=== PATIENT | male | born 1960 | race Caucasian/White ===

== ENCOUNTER 2023-09-17 12:44 | Emergency (ER) | payer MEDICARE, MEDICAID, SELFPAY ==
--- NOTE | ~2023-09-17 | XR_ITS ---
EXAMINATION: XR wrist RT min 3V DATE: 09/17/2023 13:20 INDICATION: Right wrist pain and limited range of motion post fall TECHNIQUE: Posteroanterior, ulnar deviation, oblique, and lateral views of the right wrist were obtai ancelmo. COMPARISON: none FINDINGS: The linear lucencies projecting across the articular surface of the distal radius suspicious for nond isplaced intra-articular fracture. There is a small ossific density projecting over the joint space b etween the distal radius and ulna potentially representing a loose intra-articular fracture fragment. No other lesions suspicious for fracture identified. 1 mm ulnar positive variance with irregular cor tical contour along the distal ulna and suggestion of subarticular cystic change at the juxtaposed ra dial side of the proximal articular surface of the triquetrum suggesting possibility of chronic ulnoc arpal impaction. Mild osteoarthritis at the triscaphe joint. IMPRESSION: 1. Likely nondisplaced intra-articular impaction fracture along the distal articular surface of the r adius. 2. 1 mm ulnar positive variance with changes at the distal ulna and proximal triquetrum suggesting ch ronic ulnocarpal impaction. Reviewed, dictated and finalized at location B. IMPRESSION: 1. Likely nondisplaced intra-articular impaction fracture along the distal yue cular surface of the radius. 2. 1 mm ulnar positive variance with changes at the distal ulna and proximal tr iquetrum suggesting chronic ulnocarpal impaction.
--- NOTE | ~2023-09-17 | CT_ITS ---
EXAMINATION: CT brain wo con DATE: 09/17/2023 13:13 INDICATION: Head injury. TECHNIQUE: Computed tomography (CT) of the head was performed without intravenous contrast. The mA wa s adjusted according to patient size. Iterative reconstruction technique was employed. The dose-lengt h product was 681.00 mGy-cm. COMPARISON: None FINDINGS: There is no intracranial hemorrhage, acute infarction, or abnormal intracranial mass lesion . The ventricles are normal in size. There is mucosal thickening in the paranasal sinuses. The mastoi d air cells are normal. The orbits are normal. There is right frontal scalp soft tissue swelling. IMPRESSION: 1. Normal brain. Reviewed, dictated and finalized at location A. IMPRESSION: 1. Normal brain.
--- NOTE | ~2023-09-17 | CT_ITS ---
EXAMINATION: CT cervical spine wo con DATE: 09/17/2023 13:14 INDICATION: Fall with head injury TECHNIQUE: Computed tomography (CT) of the cervical spine was performed without intravenous contrast. Automated exposure control and iterative reconstruction technique were employed. The dose-length pro duct was 509.52 mGy-cm. COMPARISON: None FINDINGS: 1 mm anterolisthesis of C5 on C6. Alignment is otherwise normal. Vertebral body heights are normal. N o acute fracture. Moderate disc height loss with degenerative endplate changes and severe left-sided and moderate right-sided uncovertebral osteoarthritis at C5-C6 and C6-C7. Posterior disc ossified com plexes resulting in mild central canal stenosis at both these levels. Mild disc height loss with mild uncovertebral osteoarthritis at C3-C4 and C4-C5. Multilevel cervical facet osteoarthritis, severe on the right at C3-C4 through C5-C6 and on the left at C5-C6 and C7-T1. Mild to moderate facet osteoart hritis at the remaining cervical levels. Multilevel mild bilateral cervical neural foraminal stenosis . Cervical soft tissues are unremarkable. Mild emphysema and mild dependent atelectasis in the bilate ral upper lobes. IMPRESSION: 1. Moderate cervical spondylosis. No acute osseous abnormality. 2. Mild emphysema. Reviewed, dictated and finalized at location B.
[2023-09-17 12:51] VITALS: BP 196/101; PULSE 65; RESP 17; TEMP 36.6; O2SAT 97
[2023-09-17] MEDS: TETANUS,DIPHTHERIA,AC PERTUSSIS ADULT (0.5 ML) BOOSTRIX IM (13:20)
[2023-09-17] MEDS: HYDROcodone/acetaminophen (*CRX) 5-325 MG TABLET 1 TAB PO (13:24)
--- NOTE | 2023-09-17 15:54 | ED.FALL ---
HPI - Fall General Chief Complaint: Fall Stated Complaint: fall off semi Time Seen by Provider: 09/17/23 12:47 History of Present Illness HPI Narrative: patient presents here after he had tripped over on his boots and fell, he did hit his head, as well as his right wrist. No loss of consciousness. No nausea or vomiting. Related Data Allergies Allergy/AdvReac Type Severity Reaction Status Date / Time No Known Allergies Allergy Verified 09/17/23 12:56 Review of Systems Review of Systems: CONST: No fever. HEENT: Cut on face C/V: No chest pain RESP: No cough GI: No nausea vomiting : No dysuria. M/S: Right wrist pain SKIN: Cut on face NEURO: [No hfocal numbness or weakness] PSYCH: [No depression] Exam Narrative: EXAMINATION OF ORGAN SYSTEMS/BODY AREAS: Constitutional: Vital signs per nursing GENERAL:[No acute distress, non-toxic appearing.] HEAD: [place] l[place] to right forehead, lateral cheek EYES: EOMI, conjunctiva normal ENT: Hearing grossly intact LUNGS: Nonlabored breathing. HEART: [Regular rate and rhythm] ABD: [Soft], [nontender to palpation] EXT: Tenderness and slight deformity and swelling to right wrist, normal pulses, able to wiggle fingers SKIN: [place] to right forehead, lateral cheek NEURO: [Alert and oriented x 3. No gross focal sensory or strength deficits.] PSYCH: Normal affect Course Vital Signs Vital signs: Vital Signs Temperature 98 F 09/17/23 12:51 Pulse Rate 65 09/17/23 12:51 Respiratory Rate 17 09/17/23 12:51 Blood Pressure 196/101 H 09/17/23 12:51 Pulse Oximetry 97 09/17/23 12:51 Oxygen Delivery Room Air 09/17/23 12:51 Temperature 98 F 09/17/23 12:51 Pulse Rate 65 09/17/23 12:51 Respiratory Rate 17 09/17/23 12:51 Blood Pressure 196/101 H 09/17/23 12:51 Pulse Oximetry 97 09/17/23 12:51 Oxygen Delivery Room Air 09/17/23 12:51 Procedures Laceration Laceration 1: Date: 09/17/23 Site: face Side (If applicable): right Size (cm): 1 Description: stellate Depth: simple, single layer Pre-repair: irrigated ====== Skin Level ====== Skin layer closed with: dermabond ====== Subcutaneous Layer ====== ====== Muscle Layer ====== ====== Tendon Layer ====== Laceration 2: Date: 09/17/23 Site: face Side (If applicable): right Size (cm): 1 Description: linear Depth: simple, single layer ====== Skin Level ====== Skin layer closed with: dermabond ====== Subcutaneous Layer ====== ====== Muscle Layer ====== ====== Tendon Layer ====== Nerve Block Nerve Block 1: Additional Comments: Hematoma block performed R wrist for fracture / pain control / splint application. Informed verbal consent obtained. Skin cleaned with alcohol swabs. Palpated landmarks. 3cc lidocaine 1% instilled. Patient tolerated this well and did have adequate pain control Orthopedic Splinting/Casting Injury #1: Splinting/Casting Date: 09/17/23 Side: right Upper Extremity Injury Location: wrist Upper Extremity Immobilizer: wrist splint Splint: customized in ED OCL: volar Pre-Procedure Neuro Vascular Exam: normal Post-Procedure Neuro Vascular Exam: normal MDM - Fall MDM Narrative Medical decision making narrative: Patient presenting here after mechanical fall, he has injury to his right wrist with obvious deformity, which is neurovascularly intact, as well as head trauma with facial laceration. CT head, C-spine obtained without any obvious acute abnormality. Wounds cleaned, tetanus is updated, wrist x-ray does show nondisplaced intra-articular fracture. Hematoma block performed the patient tolerated this well, clinically, neurovascularly intact afterwards after evaluation at time of discharge patient in no distress, stable for outpatient management with Or
== END 2023-09-17 14:45 | disposition home or self-care (01) ==
PROVIDERS: Emergency Provider Emergency Medicine
DX: S01.81XA Laceration without foreign body of other part of head, initial encounter (principal); S52.91XA Unspecified fracture of right forearm, initial encounter for closed fracture; Z23 Encounter for immunization; W01.0XXA Fall on same level from slipping, tripping and stumbling without subsequent striking against object, initial encounter
CPT/HCPCS: 29125; 70450; 72125; 73110; 90471; 90715; 99284; A9270

== ENCOUNTER 2024-04-06 08:01 | Observation (INO) | payer MEDICARE, MEDICAID, SELFPAY ==
[2024-04-06] VITALS (15 sets, daily range): BP systolic 126–180; BP diastolic 59–103; PULSE 49–88; RESP 8–20; TEMP 36.3–36.6; O2SAT 92–98; BMI 29.2
--- NOTE | ~2024-04-06 | XR_ITS ---
Clinical Indication: Cough PA and lateral views of the chest: Comparison: None Findings: The lungs are clear, without evidence of focal consolidation or pleural effusion. Cardiome diastinal silhouette is within normal limits. Bones and soft tissues are unremarkable. Impression: Clear lungs. Reviewed, dictated and finalized at location . Impression: Clear lungs.
--- NOTE | ~2024-04-06 | XR_ITS ---
Portable chest x-ray Comparison: 04/06/2024 Clinical History: Hemoptysis Findings: Minimal bibasilar haziness again present. No pleural effusion or pneumothorax. Cardiomedi astinal silhouette is stable. Bones and soft tissues are unremarkable. Impression: Stable minimal bibasilar haziness, nonspecific. Reviewed, dictated and finalized at location . Impression: Stable minimal bibasilar haziness, nonspecific.
--- NOTE | ~2024-04-06 | CT_ITS ---
CTA chest PE protocol Ordering provider: Cresencio Roca MD History: 63 years Male with . Hemoptysis . Comparison: None. Technique: CT angiogram chest was performed following timed intravenous injection of contrast. Thin s lice axial images and reformatted coronal images were obtained. Three dimensional reformatted images of the chest were also obtained using a [employer] workstation. . Automated exposure control and iterati ve reconstruction technique were employed. The dose-length product was 565.28 mGy-cm. Findings: PULMONARY ARTERIES: No pulmonary embolus. VISUALIZED THORACIC INLET: Normal. MEDIASTINUM: Aorta/coronary arteries: Mild atheromatous disease. Heart/other: The heart is not enlarged. Lymph nodes: No mediastinal or hilar adenopathy. LUNGS: Small Patchy groundglass appearing areas in the left lung bases which may indicate atelectasis versus pneumonia versus hemorrhage. Clinical correlation advised. Otherwise, No pulmonary nodules or masses . No effusions. No pneumothorax. VISUALIZED UPPER ABDOMEN: Narrowing at the origin of these superior mesenteric artery. Clinical corre lation advised. No 2.5 cm Left kidney cyst.. Otherwise, the visualized upper abdomen is normal. MUSCULOSKELETAL: Soft tissues: The superficial soft tissues are normal. Bones: Age appropriate degenerative changes of the spine. IMPRESSION: 1. Small patchy groundglass appearing areas in the left lung base suggestive of atelectasis versus p neumonia versus hemorrhage. Clinical correlation advised. 2. Slight narrowing at the origin of the superior mesenteric artery. Clinical correlation advised. Reviewed, dictated and finalized at location A. IMPRESSION: 1. Small patchy groundglass appearing areas in the left lung base suggestive o f atelectasis versus pneumonia versus hemorrhage. Clinical correlation advised. 2. Slight narrowing at the origin of the superior mesenteric artery. Clinical correlation advised.
--- NOTE | 2024-04-06 08:25 | ECG_ITS ---
Test Date: 2024-04-06 11:30:14 Measurements Intervals [place] Rate: 57 P: 46 AL: 162 QRS: 3 QRSD: 144 T: 19 QT: 432 QTc: 423 Interpretive Statements SINUS BRADYCARDIA RIGHT BUNDLE BRANCH BLOCK [120+ ms QRS DURATION, UPRIGHT V1, 40+ ms S IN I/aVL/V4/V5/V6] No previous ECG available for comparison Electronically Signed On 04-06-2024 13:20:34 CDT by Praful Helm M.D.
[2024-04-06 08:45] LABS: Basophils Absolute Auto 0.1 K/mm3 (0.0-0.1); Basophils Percent Auto 1.3 % (0.2-1.2); Eosinophils Absolute Auto 0.2 K/mm3 (0-0.3); Eosinophils Percent Auto 2.3 % (0-4.4); Hematocrit 50.9 % (42.0-52.0); Hemoglobin 17.1 g/dL (14.0-18.0); Immature Granulocyte Absolute 0.02 K/mm3 (0.00-0.031); Immature Granulocyte Percent A 0.3 % (0-0.5); Lymphocytes Absolute Auto 2.17 K/mm3 (0.9-3.2); Lymphocytes Percent Auto 27.7 % (18.3-44.2); Mean Corpuscular HGB Conc 33.6 g/dl (32-36); Mean Corpuscular Hemoglobin 30.9 pg (26-34); Monocytes Absolute Auto 0.7 K/mm3 (0.1-0.6); Monocytes Percent Auto 9.1 % (2.6-8.5); Neutrophils Absolute Auto 4.6 K/mm3 (1.3-6.7); Neutrophils Percent Auto 59.3 % (45.5-73.1); Platelet Count Result 224 k/mm3 (150-375); Red Blood Count 5.53 M/mm3 (4.6-6.20); Red Cell Distribution Width 13.1 % (11.5-14.5); White Blood Count 7.8 K/mm3 (4.5-10.0)
[2024-04-06 08:54] LABS: Alanine Aminotransferase 38 U/L (6-50); Albumin Level 4.6 g/dL (3.5-5.1); Alkaline Phosphatase 67 U/L (38-126); Anion Gap 9 mmol/L (4-12); Aspartate Amino Transferase 38 U/L (17-59); Bilirubin,Total 1.3 mg/dL (0.2-1.3); Blood Urea Nitrogen 15 mg/dL (9-20); Calcium 9.1 mg/dL (8.4-10.2); Carbon Dioxide 28 mmol/L (22-30); Chloride 100 mmol/L (98-107); Estimated CRCL calculation 72 ml/min; Estimated Glomerular Filt Rate > 60; Glucose 109 mg/dL (65-110); Potassium 4.3 mmol/L (3.4-5.0); Sodium 137 mmol/L (137-145)
[2024-04-06 09:02] LABS: INR 1.1; Prothrombin Time 14.6 Seconds (11.1-14.7)
[2024-04-06 09:03] LABS: Partial Thromboplastin Time 33.4 Seconds (22.3-36.8)
[2024-04-06 10:43] LABS: Influenza A QL RT-PCR Negative (Negative); Influenza B QL RT-PCR Negative (Negative); RSV RNA, RT-PCR Negative (Negative); SARS-CoV-2 RNA PCR Negative (Negative)
--- NOTE | 2024-04-06 11:47 | ED.GENADULT ---
HPI - General Adult General Chief complaint: Shortness of Breath/Dyspnea Stated complaint: coughing up blood Time Seen by Provider: 04/06/24 08:17 History of Present Illness HPI narrative: This is a 63-year-old male presenting ED with chief complaint of hemoptysis. Symptoms started 2 days ago. Patient has a productive cough she feels coming from deep in his chest. He is denying fevers chills chest pain difficulty breathing abdominal pain, lower extremity edema, risk factors for DVT/PE or URI symptoms. No use of blood thinners. Patient used to be a smoker but now uses a vape pen. Related Data Allergies Allergy/AdvReac Type Severity Reaction Status Date / Time No Known Allergies Allergy Verified 04/06/24 08:06 [facility] Past Medical History Medical History Fracture of radius, distal, right, closed Right knee DJD Smoking Surgical History Surgical History History of tonsillectomy Family History Family History Unknown Hypertension Heart disease Diabetes mellitus Social History Social History Social History: caffeine use Smoking status: Current every day smoker Tobacco type: e-cigarettes/vaping Additional smoking assessment comments: quit cigarettes Alcohol intake: current Substance use type: marijuana Occupation/Education: occupation Additional occupation/education comments: self employed Gender identity (if verbalized by the patient): Male Exam Narrative: APPEARANCE: No apparent distress. Head: atraumatic. EYES: EOMI, NOSE: Atraumatic NECK: Trachea midline RESPIRATORY: No increased rate of breathing, wheezing and rhonchi in the left lower lobe. Otherwise clear CARDIOVASCULAR: RRR, no peripheral edema ABDOMINAL: Non-distended soft nontender MUSCULOSKELETAl: No obvious deformities NEURO: Alert. Moving 4/4 extremities SKIN:: Warm, dry. Normal color PSYCHIATRIC: Normal affect Course Vital Signs Vital signs: Vital Signs Temperature 97.7 F 04/06/24 08:07 Pulse Rate 70 04/06/24 08:07 Respiratory Rate 15 04/06/24 08:07 Blood Pressure 180/95 H 04/06/24 08:07 Pulse Oximetry 97 04/06/24 08:07 Temperature 97.9 F 04/06/24 11:26 Pulse Rate 60 04/06/24 11:26 Respiratory Rate 12 04/06/24 11:26 Blood Pressure 175/92 H 04/06/24 11:26 Pulse Oximetry 96 04/06/24 11:26 Oxygen Delivery Room Air 04/06/24 08:50 Medical Decision Making MDM Narrative Medical decision making narrative: -Course: 63-year-old male presenting with hemoptysis. CT PE negative for pulmonary embolism. It shows VERY subtle haziness/groundglass opacities left lower lobe which could be atelectasis vs pneumonia vs hemorrhage. This area corresponds with the patient's scattered wheezing and rhonchorous lung sounds. Case was discussed with Dr. Manning (pul). Alveolar hemorrhage due to vape pen usage, pneumonia, bronchitis are all in the differential. Patient placed on antibiotics to cover for pneumonia. Patient will be placed in observation for further management. -DDX includes but is not limited to: PE, alveolar hemorrhage, pneumonia, bronchitis, epistaxis, GI bleed -Co-morbidities complicating care: Arthritis -Social determinants of health: Former smoker, currently using a vape pen, occasional marijuana use -Independent interpretation of studies: Labs reviewed Imaging reviewed Independent EKG interpretation: Rhythm [sinus], Rate [57], [place] -[normal], [place] -[normal], QRS wide], QTC [normal], T waves -[negative for concerning inversions], ST Segments - [Negative for concerning elevations] Final interpretations: Sinus bradycardia with right bundle-branch block -Discussion of Management/Consultants: Kerri GauthierPulm)Monique -Interventions: Ceftriaxone, azithromycin -Shared decision making / Disposition: Observation Vital
[2024-04-06] MEDS: AZITHROMYCIN 500 MG/NS 250 ML 500 MG/250 ML BAG 250 MG IVPB (13:06)
--- NOTE | 2024-04-06 13:14 | PM.IMHP ---
H&P: HPI History of Present Illness Date/Time: 04/06/24 13:14 Chief Complaint: Hemoptysis Narrative: 63 y/o M presents with hemoptysis with PMH of smoking/vape use, GERD, and DJD. The patient here for further evaluation of coughing up blood. HPI obtained through patient interview and chart review. He reports onset 2 days ago on 04/03 while he was setting up to [employer] for the evening. Reports he coughed when he got outside and it was light red with mucus. Reports that has increased in severity and volume since onset. Reports the blood is darker and now has clots. He describes the cough as productive, producing white sputum, and scant initially then moderate in volume today. He is not currently on anticoagulation. He denies recent surgery, malignancy/treatment for malignancy, travel, or immobility in the last 3 months. Patient has history of smokin PPD x 5-6 years. Currently uses a vape pen every 20 mins during waking hours x 4 years. Readiness for cessation - interested, has previously tried the nicotine patches without success. ETOH use is daily, 2 on average per day, and beer. Initial VS at presentation: 97.7? F, HR 70, RR 15, 180/95, and 97% on RA. ED workup showed: No leukocytosis, no anemia, normal coags, no significant electrolyte derangements, creatinine 0.9 and GFR >60, and viral PCR negative. A CXR showed clear lungs. CTA of the chest showed small patchy ground-glass appearing areas of left lung base subjective of atelectasis v pneumonia v hemorrhage and slight narrowing at the origin of the superior mesenteric artery. Review of Systems Review of Systems: All systems reviewed & are unremarkable except as noted in HPI and below PMFSH Past Medical History Medical History Arthritis Bronchitis Fracture of radius, distal, right, closed GERD (gastroesophageal reflux disease) History of nicotine vaping Right knee DJD Smoking Surgical History Surgical History History of tonsillectomy Family History Family History Unknown Hypertension Heart disease Diabetes mellitus Social History Social History Social History: caffeine use Smoking status: Heavy tobacco smoker Tobacco type: e-cigarettes/vaping Additional smoking assessment comments: quit cigarettes Alcohol intake: current Substance use: current Substance use type: marijuana Do You Feel Safe in your Home?: Yes Lack of Transportation: No Lack of Food: Never True Current Housing: I Have Housing Concerned About Future Housing: No Difficulty Paying Gas/Electric Bills: No Difficulty Paying for Meds: No Currently Unemployed: No Education: Decline to Answer Difficulty w/ Childcare or Family Care: No Occupation/Education: occupation Additional occupation/education comments: self employed Gender identity (if verbalized by the patient): Male Spiritual care concerns: No Meds Home Medications and Allergies Home Medications Medication Instructions Recorded Confirmed Type diclofenac sodium 75 mg 75 mg PO DAILY 04/06/24 04/06/24 History tablet,delayed release oxycodone-acetaminophen 5 mg-325 1 tablet PO TID PRN Pain (Scale 04/06/24 04/06/24 History mg tablet Score 4-6) Allergies Allergy/AdvReac Type Severity Reaction Status Date / Time No Known Allergies Allergy Verified 04/06/24 08:06 Vital Signs Vital Signs - 24 hr 04/06/24 08:07 04/06/24 08:50 04/06/24 08:10 Temperature 97.7 F Pulse Rate 70 62 Respiratory Rate 15 15 Blood Pressure 180/95 H 180/95 H Pulse Oximetry 97 97 Oxygen Delivery Room Air 04/06/24 09:04 04/06/24 10:08 04/06/24 11:26 Temperature 97.9 F 97.9 F 97.9 F Pulse Rate 54 L 62 60 Respiratory Rate 12 16 12 Blood Pressure 168/90 H 142/88 H 175/92 H Pulse Oximetry 98 92 96 [employer]
--- NOTE | 2024-04-06 14:53 | PM.CNPUL ---
Assessment and Plan Assessment and plan (1) Hemoptysis: Code(s): R04.2 - Hemoptysis Status: Acute Assessment and Plan: This 63-year-old man with a long history of smoking and a 2-year history of vaping presented with a 3-day history of hemoptysis, characterized by bright red blood on several occasions each day, which did not follow symptoms suggestive of lower respiratory tract infection such as bronchitis or pneumonia. A chest CT was essentially non-localizing, showing a few ground-glass opacities in the left lower lobe. He had no pulmonary embolism and only mild centrilobular emphysema. The patient's history, in conjunction with the diagnostic studies, likely suggests vaping-induced lung injury with hemoptysis. Other possibilities that need to be excluded, such as pulmonary-renal syndrome, seem to be less likely. Plan: The patient was given Solu-Medrol 80 mg IV and started on antibiotics while waiting for sputum culture. Tests to exclude hepatorenal syndrome will be ordered. (2) History of nicotine vaping: Code(s): Z87.891 - Personal history of nicotine dependence Status: Acute History of Present Illness History of Present Illness Consult date: 04/06/24 Chief complaint: Hemoptysis Narrative: This 63-year-old man presented with a 3-day history of hemoptysis. The patient was in his usual state of health until approximately 2 days prior to this admission when, while doing some work at home, he coughed up blood. Prior to the first episode of hemoptysis, he had no symptoms suggestive of bronchitis, such as cough with sputum production, or other symptoms such as shortness of breath or chest pain. The patient continued to have hemoptysis, coughing up bright red blood yesterday morning. Yesterday afternoon, he was coughing up dark blood, having approximately 3-5 episodes of hemoptysis on each of these days. The patient was evaluated in the emergency room earlier today. He again had hemoptysis with bright red blood a couple of times in the emergency room. Workup with chest CT showed no evidence of pulmonary embolism. There was evidence of mild centrilobular emphysema and faint ground-glass opacities in the left lower lobe. The patient had been a smoker for many years. Over the last 2 years, he has been vaping excessively. It is unclear whether he is using nicotine plus THC. His past medical history is essentially negative for previous lung disease. He has right knee pain likely related to osteoarthritis. Review of Systems Review of Systems: All systems reviewed & are unremarkable except as noted in HPI and below (HPI and below) [facility] Past Medical History Medical History Fracture of radius, distal, right, closed Right knee DJD Smoking Surgical History Surgical History History of tonsillectomy Family History Family History Unknown Hypertension Heart disease Diabetes mellitus Social History Social History Social History: caffeine use Smoking status: Current every day smoker Tobacco type: e-cigarettes/vaping Additional smoking assessment comments: quit cigarettes Alcohol intake: current Substance use type: marijuana Occupation/Education: occupation Additional occupation/education comments: self employed Gender identity (if verbalized by the patient): Male Meds Home Medications and Allergies Home Medications Medication Instructions Recorded Confirmed Type meloxicam 15 mg tablet 15 mg PO DAILY #30 tabs 10/27/23 02/05/24 Rx Allergies Allergy/AdvReac Type Severity Reaction Status Date / Time No Known Allergies Allergy Verified 04/06/24 08:06 Vital Signs Vital Signs - 24 hr 04/06/24 08:07 04/06/24 08:50 04/06/24 08:10 Temperature 36.5 C Pulse Rate 70 62 Respiratory Rate 15 15 Blood Pressure 180/95 H 180/95 H Puls
--- NOTE | 2024-04-06 15:21 | ADMGEN ---
This patient, Ricardo Patel, was admitted to Medical Room 346-01. Patient/family oriented to hospital policies and general routines including ID bracelet, bed and alarms, visiting hours, pain management, procedures, bathroom and other care routines, personal items, smoking policy, room service/diet, and visiting hours. Information on how to activate the Rapid Response Team has been discussed. Patient/Family are encouraged to report perceived risks to care and to ask questions if they do not understand what they are told or what they should do.
[2024-04-06] MEDS: NICOTINE (*PBKC) 21 MG PATCH 1 PATCH TRANSDERM (16:20)
[2024-04-06] MEDS: methylPREDNISolone SOD SUCC 40 MG VIAL 80 MG IV PUSH (16:21)
[2024-04-06 18:47] LABS: Add Urine Microscopic? YES; Appearance Urine Clear (Clear); Bacteria Urine None Seen /hpf; Bilirubin Urine Negative (Negative); Blood Urine Negative (Negative); Color Urine Yellow (Yellow); Glucose Urine UA Negative (Negative); Ketones Urine 1+ mg/dL (Negative); Leukocyte Esterase Ur Trace LEU/UL (Negative); Nitrate Urine Negative (Negative); Non Pathogenic Casts 0-2; Protein Urine Negative (Negative); RBC Urine 0-2 /hpf (0-2); Specific Grav Ur 1.039 (1.001-1.035); Squamous Epithelial Cell Urine None Seen /hpf (Few); WBC Urine 0-5 /hpf (0-3); pH Urine 5.5 (5.0-9.0)
[2024-04-06 19:28] LABS: MRSA (PCR) NOT DETECTED (NOT DETECTE)
[2024-04-06] MEDS: guaiFENesin 12 HR 600 MG TABCR PO (20:24)
[2024-04-07 04:00] VITALS: PULSE 70
[2024-04-07 04:27] VITALS: BP 147/97; PULSE 76; RESP 16; TEMP 36.6; O2SAT 97
[2024-04-07 06:30] LABS: Basophils Percent Auto 0.1 % (0.2-1.2); Eosinophils Percent Auto 0.1 % (0-4.4); Hemoglobin 16.6 g/dL (14.0-18.0); Immature Granulocyte Absolute 0.05 K/mm3 (0.00-0.031); Immature Granulocyte Percent A 0.5 % (0-0.5); Lymphocytes Absolute Auto 1.42 K/mm3 (0.9-3.2); Lymphocytes Percent Auto 13.4 % (18.3-44.2); Mean Corpuscular HGB Conc 33.2 g/dl (32-36); Mean Corpuscular Hemoglobin 30.5 pg (26-34); Mean Corpuscular Volume 91.7 fl (80-100); Mean Platelet Volume 10.4 fl (7.4-10.4); Monocytes Absolute Auto 0.9 K/mm3 (0.1-0.6); Monocytes Percent Auto 8.5 % (2.6-8.5); Neutrophils Absolute Auto 8.2 K/mm3 (1.3-6.7); Neutrophils Percent Auto 77.4 % (45.5-73.1); Platelet Count Result 246 k/mm3 (150-375); Red Blood Count 5.45 M/mm3 (4.6-6.20); Red Cell Distribution Width 12.8 % (11.5-14.5); White Blood Count 10.6 K/mm3 (4.5-10.0)
[2024-04-07 06:42] LABS: Alanine Aminotransferase 32 U/L (6-50); Albumin Level 4.5 g/dL (3.5-5.1); Alkaline Phosphatase 53 U/L (38-126); Anion Gap 11 mmol/L (4-12); Aspartate Amino Transferase 26 U/L (17-59); Bilirubin,Total 1.5 mg/dL (0.2-1.3); Blood Urea Nitrogen 17 mg/dL (9-20); Carbon Dioxide 23 mmol/L (22-30); Chloride 102 mmol/L (98-107); Estimated CRCL calculation 91 ml/min; Estimated Glomerular Filt Rate > 60; Glucose 148 mg/dL (65-110); Potassium 3.9 mmol/L (3.4-5.0); Sodium 136 mmol/L (137-145)
--- NOTE | 2024-04-07 08:32 | PM.IMPN ---
Progress Note: A&P Assessment and Plan (1) Hemoptysis: Code(s): R04.2 - Hemoptysis Status: Acute Assessment and Plan: - did not meet SIRS criteria, however blood cultures were obtained. Follow. - CXR: clear lungs - chest CTA: 1. Small patchy groundglass appearing areas in the left lung base suggestive of atelectasis versus pneumonia versus hemorrhage. Clinical correlation advised. 2. Slight narrowing at the origin of the superior mesenteric artery. Clinical correlation advised. - hgb 17.1 - started on CPAP treatment: Ceftriaxone and azithromycin on 04/06. - supportive care: Tylenol p.r.n., antitussives p.r.n., DuoNeb p.r.n., Mucinex scheduled - DDx: pulmonary hemorrhage secondary to vape use versus pneumonia, or combination thereof. - pulmonology consulted, with recommendations for Solu-Medrol 80 mg IV, started on azithromycin and ceftriaxone antibiotics while waiting for sputum culture and hepatorenal syndrome testing Influenza a, B, RSV, and COVID test negative (2) Smoking: Code(s): F17.200 - Nicotine dependence, unspecified, uncomplicated Status: Acute Assessment and Plan: - history of cigarette smokin PPD x 5-6 years. - current vape use, estimates he uses it every 20 minutes during waking hours for the past 4 years - readiness for cessation: Interested, previous lesion tried nicotine patches without success - nicotine patch ordered -started bupropion (3) Elevated blood pressure reading without diagnosis of hypertension: Code(s): R03.0 - Elevated blood-pressure reading, without diagnosis of hypertension Status: Acute Assessment and Plan: - elevated, no previous diagnosis of hypertension. 150/80 on average at home per patient report. - current range: 180/95 to 142/80 - hydralazine p.r.n. for BP greater than 180/90 - monitor Plan Patient requesting a referral to a primary care provider at d/c, not currently established with one. Diet: Regular GI Prophylaxis: Not currently indicated DVT Prophylaxis: SCDs Lines: Peripheral Code Status: full code Time Spent With Patient Time: 40 minutes Subjective Date/time seen: 04/07/24 08:32 Interval history: 63-year-old male with history of hypertension, heart disease and diabetes presents to the hospital for hemoptysis. Per pulmonology patient's history and diagnostic studies likely suggests vaping-induced lung injury with hemoptysis. No acute events, patient is thinking about leaving AMA so he can smoke, patient advised to stay and started bupropion Review of Systems Review of Systems: All systems reviewed & are unremarkable except as noted in HPI and below Exam Const: General: comfortable and no acute distress Other: , male, nontoxic appearance HENMT: Face/Nose/Sinus: Normal nares present Mouth: Yes moist mucous membranes Eyes: General: appearance normal, both eyes and all related structures Sclera: sclerae normal Pupils: Equal, round and reactive pupils present EOM: EOMs intact bilaterally Resp: Effort & Inspection: normal respiratory effort Auscultation: clear to auscultation bilaterally Cardio: Rate: regular rate Rhythm: regular rhythm Other: S1-S2 present without murmur, rub, ectopy Skin: General skin exam: normal color and no rashes or lesions noted Wounds: no wounds Neuro: General: gait normal Cranial nerves: Yes Equal, round and reactive pupils present Speech: normal speech Motor exam (neuro): 5/5 motor strength present throughout Sensory Exam: normal sensation Other: A&O x4 Extrem: General: normal to inspection Psych: Mental Status: mental status grossly normal Affect: normal affect Other: Good insight and judgment, pleasant Objective Data Vital Signs Vital Signs: Vital Signs - 24 hr 04/06/24 08:50 04/06/24 09:04 04/06/24 10:08 Temperature 97.9 F 97.9 F Pulse Rate 54 L 62 Respiratory Rate 12 16 Blood
--- NOTE | 2024-04-07 08:51 | PM.PNPUL ---
Progress Note: A&P Assessment and Plan (1) History of nicotine vaping: Code(s): Z87.891 - Personal history of nicotine dependence Status: Acute (2) Hemoptysis: Code(s): R04.2 - Hemoptysis Status: Acute Assessment and Plan: This 63-year-old man presented with hemoptysis of 3 days duration. Hemoptysis did not follow prior symptoms suggestive of bronchitis or pneumonia. Chest CT was essentially nonlocalizing, showing minimal ground-glass opacities in the left lower lobe. He also had evidence of mild centrilobular emphysema. The patient's history in conjunction with diagnostic studies suggests the most likely cause of lung damage is related to vaping. Workup for vasculitis is pending. Urinalysis is unremarkable. Renal function is normal. Plan: The patient will have a stat chest x-ray this morning. It is okay to discharge the patient home on prednisone 40 mg p.o. daily for 5-7 days. The patient is also to complete an azithromycin course for a total of 5 days. The patient was advised to call Pulmonary Services or come to the emergency room if he starts coughing up more blood. The patient will make an appointment to see us in the Pulmonary Clinic approximately 2 weeks from discharge. I will sign off, please call with any questions. Subjective Date/time seen: 04/07/24 08:51 Interval history: Patient had 1 episode of hemoptysis this a.m., which was mostly old blood. No new respiratory symptoms no fever no chills no chest pain. Remains on room air. Review of Systems Review of Systems: All systems reviewed & are unremarkable except as noted in HPI and below (HPI and below) Exam Narrative: GENERAL APPEARANCE: Well developed, well nourished, alert and cooperative, and appears to be in no acute distress SKIN: Inspection of the skin reveals no rashes, ulcerations or petechiae. HEENT: Sclerae anicteric and conjunctivae pink and moist. Extraocular movements were intact and pupils were equal, round, and reactive to light. The oral mucosa, hard and soft palate, tongue and posterior pharynx were normal. NECK: Supple. There was no thyroid enlargement, and no tenderness, or masses were felt. CHEST: Normal AP diameter and normal contour without any kyphoscoliosis. LUNGS: Auscultation of the lungs revealed normal breath sounds without any other adventitious sounds or rubs. CARDIAC: There was a regular rate and rhythm without any murmurs, gallops, rubs. ABDOMEN: Soft and nontender with normal bowel sounds. There was no organomegaly. LYMPH NODES: No lymphadenopathy was appreciated in the neck. EXTREMITIES: No cyanosis, clubbing or edema. NEUROLOGIC: Alert and oriented x 3. Normal affect. Objective Data Vital Signs Vital Signs: Vital Signs - 24 hr 04/06/24 09:04 04/06/24 10:08 04/06/24 11:26 Temperature 36.6 C 36.6 C 36.6 C Pulse Rate 54 L 62 60 Respiratory Rate 12 16 12 Blood Pressure 168/90 H 142/88 H 175/92 H Pulse Oximetry 98 92 96 Oxygen Delivery Fraction of Inspired Oxygen 04/06/24 10:54 04/06/24 10:56 04/06/24 11:00 Temperature Pulse Rate 56 L 63 65 Respiratory Rate 12 8 L 15 Blood Pressure 179/103 H Pulse Oximetry 96 96 96 Oxygen Delivery Fraction of Inspired Oxygen 04/06/24 11:02 04/06/24 11:26 04/06/24 12:15 Temperature Pulse Rate 58 L 57 L 49 L Respiratory Rate 15 12 16 Blood Pressure 179/101 H Pulse Oximetry 96 97 97 Oxygen Delivery Fraction of Inspired Oxygen 04/06/24 12:43 04/06/24 16:59 04/06/24 16:00 Temperature Pulse Rate 88 Respiratory Rate 20 Blood Pressure Pulse Oximetry 97 Oxygen Delivery Room Air Room Air Fraction of Inspired Oxygen 21 04/06/24 20:26 04/06/24 20:00 04/06/24 20:00 Temperature 36.3 C L Pulse Rate 66 80 Respiratory Rate 16 Blood Pressure 126/59 L Pulse Oximetry 97 Oxygen Delivery Room Air Fraction of Inspired Oxygen 04/06/24 23:35 04/07/24 04:00 04/07/24 04:27 Temperature
[2024-04-07] MEDS: AZITHROMYCIN 500 MG/NS 250 ML 500 MG/250 ML BAG 250 MG IVPB (09:00)
[2024-04-07] MEDS: guaiFENesin 12 HR 600 MG TABCR PO (09:01)
[2024-04-07] MEDS: NICOTINE (*PBKC) 21 MG PATCH 1 PATCH TRANSDERM (09:01)
[2024-04-07] MEDS: buPROPion HCL XL (24 HR) 150 MG TABCR PO (10:45)
[2024-04-07 13:50] VITALS: BP 153/77; PULSE 81; RESP 18; TEMP 36.7; O2SAT 99
--- NOTE | 2024-04-07 13:55 | PM.DS ---
DS: Admitting Diagnosis Discharge Date 04/07/2024 Admitting Diagnosis Acute lung injury and pneumonia DS: Discharge Diagnosis Discharge Diagnosis (1) Hemoptysis: Code(s): R04.2 - Hemoptysis Status: Acute Assessment and Plan: - did not meet SIRS criteria, however blood cultures were obtained. Follow. - CXR: clear lungs - chest CTA: 1. Small patchy groundglass appearing areas in the left lung base suggestive of atelectasis versus pneumonia versus hemorrhage. Clinical correlation advised. 2. Slight narrowing at the origin of the superior mesenteric artery. Clinical correlation advised. - hgb 17.1 - started on CPAP treatment: Ceftriaxone and azithromycin on 04/06. - supportive care: Tylenol p.r.n., antitussives p.r.n., DuoNeb p.r.n., Mucinex scheduled - DDx: pulmonary hemorrhage secondary to vape use versus pneumonia, or combination thereof. - pulmonology consulted, with recommendations for Solu-Medrol 80 mg IV, started on azithromycin and ceftriaxone antibiotics while waiting for sputum culture and hepatorenal syndrome testing Influenza a, B, RSV, and COVID test negative The patient will have a stat chest x-ray this morning. It is okay to discharge the patient home on prednisone 40 mg p.o. daily for 5-7 days. The patient is also to complete an azithromycin course for a total of 5 days. The patient was advised to call Pulmonary Services or come to the emergency room if he starts coughing up more blood. The patient will make an appointment to see us in the Pulmonary Clinic approximately 2 weeks from discharge. (2) Smoking: Code(s): F17.200 - Nicotine dependence, unspecified, uncomplicated Status: Acute Assessment and Plan: - history of cigarette smokin PPD x 5-6 years. - current vape use, estimates he uses it every 20 minutes during waking hours for the past 4 years - readiness for cessation: Interested, previous lesion tried nicotine patches without success - nicotine patch ordered -started bupropion Smoking cessation counseling given for 3 minutes, nicotine patch daily (3) Elevated blood pressure reading without diagnosis of hypertension: Code(s): R03.0 - Elevated blood-pressure reading, without diagnosis of hypertension Status: Acute Assessment and Plan: - elevated, no previous diagnosis of hypertension. 150/80 on average at home per patient report. - current range: 180/95 to 142/80 - hydralazine p.r.n. for BP greater than 180/90 - monitor Patient recommended to follow up with his PCP Plan Patient requesting a referral to a primary care provider at d/c, not currently established with one. Diet: Regular GI Prophylaxis: Not currently indicated DVT Prophylaxis: SCDs Lines: Peripheral Code Status: full code DS: Summary Hospital Course Reason for hospitalization: 63 y/o M presents with hemoptysis with PMH of smoking/vape use, GERD, and DJD. Hospital Course: The patient here for further evaluation of coughing up blood. HPI obtained through patient interview and chart review. He reports onset 2 days ago on 04/03 while he was setting up to [employer] for the evening. Reports he coughed when he got outside and it was light red with mucus. Reports that has increased in severity and volume since onset. Reports the blood is darker and now has clots. He describes the cough as productive, producing white sputum, and scant initially then moderate in volume today. He is not currently on anticoagulation. He denies recent surgery, malignancy/treatment for malignancy, travel, or immobility in the last 3 months. Patient has history of smokin PPD x 5-6 years. Currently uses a vape pen every 20 mins during waking hours x 4 years. Readiness for cessation - interested, has previously tried the nicotine patches without success. ETOH use is daily, 2 on average per day, and beer. Initial VS at presentation: 97.7? F, HR 70, RR 15, 180/95, and 97% o
[2024-04-09 15:04] LABS: Anti Glomerular Basement Memb <1.0 AI
[2024-04-10 12:43] LABS: ANCA Screen NEGATIVE (NEGATIVE)
== END 2024-04-07 14:56 | disposition home or self-care (01) ==
LOC: ANHED 12:14 → ANH3MED 14:23
PROVIDERS: Internal Medicine Pulmonary Disease; Student in an Organized Health Care Education/Training Program; Admitting Provider Internal Medicine; Emergency Provider Emergency Medicine; Visit Provider Internal Medicine
DX: R04.2 Hemoptysis (principal); F17.290 Nicotine dependence, other tobacco product, uncomplicated; R03.0 Elevated blood-pressure reading, without diagnosis of hypertension; K21.9 Gastro-esophageal reflux disease without esophagitis; M17.11 Unilateral primary osteoarthritis, right knee; I51.89 Other ill-defined heart diseases; E11.9 Type 2 diabetes mellitus without complications; Z20.822 Contact with and (suspected) exposure to COVID-19
CPT/HCPCS: 36415; 71045; 71046; 71275; 80053; 81001; 83520; 85025; 85610; 85730; 86036; 87040; 87070; 87205; 87637; 87641; 93005; 96365; 96375; 96376; 99285; A9270; G0378; J0456; J0696; J2919; Q9967

== ENCOUNTER 2024-04-23 00:36 | Day surgery (SDC) | payer MEDICARE, MEDICAID, SELFPAY ==
[2024-04-19 13:41] VITALS: BMI 30.1
[2024-04-23] VITALS (9 sets, daily range): BP systolic 126–168; BP diastolic 80–92; PULSE 58–82; RESP 15–22; TEMP 36–36.3; O2SAT 98–100; BMI 29.0
--- NOTE | ~2024-04-23 | XR_ITS ---
XR chest 1V portable 04/23/2024 10:45 Indication: Preop. Hemoptysis. Procedure: AP portable chest Comparison: Comparison to multiple prior studies sequentially, with oldest reviewed study dated 04/06. Findings: Borderline heart size. Mild interstitial edema versus atypical pneumonia. No pleural effusi on or pneumothorax. No acute osseous abnormality. Impression: 1: Bilateral interstitial infiltrates with peribronchial thickening which may represent mild edema or atypical pneumonia. Reviewed, dictated and finalized at location B. Impression: 1: Bilateral interstitial infiltrates with peribronchial thickening which may r epresent mild edema or atypical pneumonia.
[2024-04-23] MEDS: LACTATED RINGERS 1,000 ML 150 ML IV CONT (10:32)
--- NOTE | 2024-04-23 11:08 | WPDHPUPDATE1 ---
History and Physical Update Update Date/Time: 04/23/24 11:08 History and Physical has been reviewed, including an updated exam of the patient. There are NO changes in the patient's condition. Risks, benefits, and alternatives have been discussed and questions answered. Patient agrees to proceed with procedure. Patient was seen today while waiting for the procedure. He has had no new respiratory symptoms. He denied having chest pain palpitations fever chills. No further hemoptysis noted. On physical exam he was in no apparent distress while breathing room air. Lung auscultation had some ray crackles at right base posteriorly otherwise clear lungs with no wheezing. Cardiovascular exam showed regular heart rhythm normal heart sounds no murmurs. The remainder of the exam was unremarkable. Plan: The procedure was again explained to the patient and his was also present. Nebulized DuoNeb treatment will be given in preparation for the procedure.
[2024-04-23] MEDS: IPRATROPIUM 0.5 MG/ALBUTEROL SULFATE 2.5 MG AMPUL.NEB 3 ML INHALATION (11:10)
--- NOTE | 2024-04-23 12:01 | WPDANESEPPF ---
Anes - Initial Pre Proc Eval Procedure: Operation Date: 04/23/24 12:30 Proposed Procedures p Flexible Bronchoscopy - Abilio Manning MD Date/Time: 04/23/24 12:01 Surgeon: Abilio Manning MD Pre Op Diagnosis: COUGHING UP BLOOD Patient Data Age: 63 Gender: M Height: 1.78 m Weight: 91.9 kg Last Vital Signs Temp 36.0 C L 04/23/24 10:21 Pulse 60 04/23/24 11:20 Resp 16 04/23/24 11:20 BP 168/83 H 04/23/24 10:21 Pulse Ox 99 04/23/24 10:21 O2 Del Method Room Air 04/23/24 10:21 Allergies Allergy/AdvReac Type Severity Reaction Status Date / Time No Known Allergies Allergy Verified 04/23/24 10:18 Home Medications Medication Instructions Recorded Confirmed Type oxycodone-acetaminophen 5 mg-325 1 tablet PO TID PRN Pain (Scale 04/06/24 04/23/24 History mg tablet Score 4-6) gabapentin 800 mg tablet 800 mg PO QHS 04/21/24 04/23/24 History lisinopril 10 mg tablet 10 mg PO DAILY #90 tabs 04/21/24 04/23/24 Rx Patient hx anesthesia problems: none Family hx anesthesia problems: none Results Review: All pre-operative results and documents have been reviewed as part of the pre-operative evaluation. [facility] Past Medical History Medical History Arthritis Bronchitis Fracture of radius, distal, right, closed GERD (gastroesophageal reflux disease) History of nicotine vaping Right knee DJD Smoking Surgical History Surgical History History of tonsillectomy Family History Family History Unknown Hypertension Heart disease Diabetes mellitus Social History Social History Social History: caffeine use Smoking packs per day: 1 Smoking cigarettes per day: 20.0 Years smoked: 15 Smoking pack-years: 15.00 Smoking status: Former smoker Tobacco type: cigarettes and e-cigarettes/vaping Additional smoking assessment comments: QUIT CIG. 2013~ STARTED VAPING Alcohol intake: current Substance use: never Substance use type: does not use Do You Feel Safe in your Home?: Yes Lack of Transportation: No Lack of Food: Never True Current Housing: I Have Housing Concerned About Future Housing: No Difficulty Paying Gas/Electric Bills: No Difficulty Paying for Meds: No Currently Unemployed: No Education: Decline to Answer Difficulty w/ Childcare or Family Care: No Living arrangements: with family Occupation/Education: occupation Additional occupation/education comments: self employed Gender identity (if verbalized by the patient): Male Spiritual care concerns: No Anes - Eval Final PreProcedure Day of Procedure 04/23/24 12:01 Patient weight: obese Heart: regular rate and rhythm Lungs: clear to auscultation Airway: Mallampati scale class 1 Neurological: alert and oriented Last oral intake: >/= 8 hours ASA classification: III Emergent: no Anesthetic plan: proceed Anesthesia type and monitoring: general ETT and standard monitoring Results Review: All pre-operative results and documents have been reviewed as part of the pre-operative evaluation. Informed Consent: The patient's anesthetic plan and its attendant risks and benefits were discussed with the patient/family/POA. Questions were solicited and answers provided to the satisfaction of the patient/family/POA.
[2024-04-23] MEDS: LIDOCAINE HCL 2% JELLY 5 ML TUBE 2 APPLIC MUCOUS MEM (13:45)
[2024-04-23] MEDS: LIDOCAINE HCL 2% LOCAL INJ 20 ML VIAL 4 ML INFILTRATE (13:45)
== END 2024-04-23 14:52 | disposition home or self-care (01) ==
PROVIDERS: PCP Family Medicine Adolescent Medicine; Visit Provider Internal Medicine Pulmonary Disease
PROC: 0BJ08ZZ Inspection of Tracheobronchial Tree, Via Natural or Artificial Opening Endoscopic (ICD-10-PCS; CPT 31622; principal; 2024-04-23 12:30)
DX: R04.2 Hemoptysis (principal); K21.9 Gastro-esophageal reflux disease without esophagitis; M17.11 Unilateral primary osteoarthritis, right knee; F17.290 Nicotine dependence, other tobacco product, uncomplicated; F12.90 Cannabis use, unspecified, uncomplicated; E66.9 Obesity, unspecified; Z68.29 Body mass index [BMI] 29.0-29.9, adult; Z79.891 Long term (current) use of opiate analgesic; Z98.890 Other specified postprocedural states; Z82.49 Family history of ischemic heart disease and other diseases of the circulatory system
CPT/HCPCS: 31622; 71045; 94640; J0330; J1100; J2003; J2004; J2405; J2704; J7040; J7120

== ENCOUNTER 2024-05-19 15:04 | Outpatient (CLI) | payer MEDICARE, SELFPAY ==
--- NOTE | ~2024-05-19 | XR_ITS ---
EXAMINATION: XR thoracolumbar DATE: 05/19/2024 15:34 INDICATION: Dorsalgia, unspecified. TECHNIQUE: 3 views of the thoracolumbar spine standing were obtained. COMPARISON: Chest CT 04/06/2024 FINDINGS: There is 8 degrees dextrocurvature of lumbar spine. There is mild chronic anterior wedging of T12 and L1 vertebral bodies. There is mildly decreased disc height at L1-L2 and L4-L5 and severely decreased disc height at L5-S1. There is multilevel facet joint osteoarthritis, severe in lower lumb ar spine. IMPRESSION: 1. Severe lower lumbar spondylosis. Reviewed, dictated and finalized at location A. [employer]ADING
--- NOTE | ~2024-05-19 | XR_ITS ---
EXAMINATION: XR cervical spine 4-5V DATE: 05/19/2024 15:34 INDICATION: Dorsalgia, unspecified. TECHNIQUE: 6 views of cervical spine were obtained. COMPARISON: CT cervical spine 09/17/2023 FINDINGS: There is 10 degrees levoscoliosis of cervicothoracic spine. There is 2 mm anterolisthesis o f C4 on C5 and C5 on C6. Vertebral body heights are normal. There is mildly decreased disc height at C4-C5, moderately decreased disc height at C5-C6, and severely decreased disc height at C6-C7. There is multilevel uncovertebral joint osteoarthritis, severe bilaterally at C5-C6 and C6-C7. There is mul tilevel facet joint osteoarthritis, severe on the right from C4-C5 through C7-T1 and severe on the le ft from C5-C6 through C7-T1. There is mild right neural foraminal stenosis at C3-C4, C4-C5, and C5-C6 and mild left neural foraminal stenosis at C5-C6 and C6-C7. There is mild central canal stenosis at C4-C5, C5-C6, and C6-C7. No prevertebral soft tissue swelling. IMPRESSION: 1. Severe cervical spondylosis. Reviewed, dictated and finalized at location [] TECHNOLOGIST
== END 2024-05-19 15:05 | disposition home or self-care (01) ==
PROVIDERS: PCP Family Medicine Adolescent Medicine; Visit Provider Family Medicine
DX: M43.02 Spondylolysis, cervical region (principal); M43.06 Spondylolysis, lumbar region
CPT/HCPCS: 72050; 72080

== ENCOUNTER 2024-05-25 11:07 | Outpatient (CLI) | payer MEDICARE, SELFPAY ==
[2024-05-25 11:53] LABS: Alanine Aminotransferase 28 U/L (6-50); Albumin Level 4.4 g/dL (3.5-5.1); Alkaline Phosphatase 66 U/L (38-126); Anion Gap 4 mmol/L (4-12); Aspartate Amino Transferase 33 U/L (17-59); Bilirubin,Total 1.3 mg/dL (0.2-1.3); Blood Urea Nitrogen 14 mg/dL (9-20); Calcium 8.6 mg/dL (8.4-10.2); Carbon Dioxide 31 mmol/L (22-30); Chloride 100 mmol/L (98-107); Cholesterol 157 mg/dL (0-200); Estimated Glomerular Filt Rate > 60; Glucose 94 mg/dL (65-110); HDL Direct 47 mg/dL; Potassium 4.4 mmol/L (3.4-5.0); Sodium 135 mmol/L (137-145); Triglycerides 76 mg/dL (<150)
[2024-05-25 12:04] LABS: LDL Cholesterol Direct 83 mg/dL
== END 2024-05-25 11:08 | disposition home or self-care (01) ==
PROVIDERS: PCP Family Medicine Adolescent Medicine; Visit Provider Nurse Practitioner Family
DX: I10 Essential (primary) hypertension (principal)
CPT/HCPCS: 36415; 80053; 80061; 84443

== ENCOUNTER 2024-06-02 13:40 | Outpatient (CLI) | payer MEDICARE, SELFPAY ==
--- NOTE | ~2024-06-02 | XR_ITS ---
XR shoulder LT min 2V Ordering provider: Aracely Hunter APRN History: . fell off a ladder yesterday . Comparison: None. FINDINGS: BONES: No acute fracture or dislocation. JOINT SPACES: The acromioclavicular joint is normal. The glenohumeral joint is normal. SOFT TISSUES: Normal. IMPRESSION: No acute osseous abnormality left shoulder. Reviewed, dictated and finalized at location A. ERADISH GRINDER
== END 2024-06-02 13:41 | disposition home or self-care (01) ==
PROVIDERS: PCP Family Medicine Adolescent Medicine; Visit Provider Nurse Practitioner Family
DX: M25.512 Pain in left shoulder (principal)
CPT/HCPCS: 73030

== ENCOUNTER 2024-08-03 15:53 | Outpatient (CLI) | payer MEDICARE, MEDICAID, SELFPAY ==
--- NOTE | ~2024-08-03 | MR_ITS ---
EXAMINATION: MR shoulder LT wo con DATE: 08/03/2024 16:28 INDICATION: Unspecified injury of left shoulder. Left shoulder pain. TECHNIQUE: Magnetic resonance imaging (MRI) of the left shoulder was performed without intravenous co ntrast. COMPARISON: Left shoulder radiographs 06/02/2024 FINDINGS: Coracoacromial arch: The acromion undersurface is flat in morphology (type I). There is moderate acromioclavicular joint o steoarthritis. There is moderate subacromial/subdeltoid bursitis. Rotator cuff: There is a full-thickness tear of supraspinatus and infraspinatus tendons measuring 17 mm anterior to posterior by 9 mm proximal to distal. Teres minor tendon is normal. Subscapularis tendon is normal. There is no asymmetric fatty atrophy of the rotator cuff muscle bellies. Biceps tendon and glenoid labrum: Biceps tendon is in bicipital groove. Intra-articular biceps tendon is normal. There is a tear of sup erior glenoid labrum at 12:00 (SLAP tear). Fluid: There is a small glenohumeral joint effusion. Bones/cartilage: Glenoid cartilage is normal. Humeral head cartilage is normal. IMPRESSION: 1. Full-thickness rotator cuff tear. 2. SLAP tear. 3. Moderate acromioclavicular joint osteoarthritis. 4. Small glenohumeral joint effusion and moderate subacromial/subdeltoid bursitis. Reviewed, dictated and finalized at location A. CTICIDE SUPERVISOR IMPRESSION: 1. Full-thickness rotator cuff tear. 2. SLAP tear. 3. Moderate acromioclavicular joint osteoarthritis. 4. Small glenohumeral joint effusion and moderate subacromial/subdeltoid bursit is.
== END 2024-08-03 15:54 | disposition home or self-care (01) ==
LOC: MICIMG 15:54
PROVIDERS: PCP Pediatrics; Visit Provider Nurse Practitioner Family
DX: M75.122 Complete rotator cuff tear or rupture of left shoulder, not specified as traumatic (principal); S43.432A Superior glenoid labrum lesion of left shoulder, initial encounter; X58.XXXA Exposure to other specified factors, initial encounter; M19.012 Primary osteoarthritis, left shoulder; M25.412 Effusion, left shoulder; M75.52 Bursitis of left shoulder; S49.92XA Unspecified injury of left shoulder and upper arm, initial encounter
CPT/HCPCS: 73221

== ENCOUNTER 2024-09-02 11:03 | Outpatient (CLI) | payer MEDICARE, SELFPAY ==
[2024-09-02 12:56] LABS: Anion Gap 9 mmol/L (4-12); Blood Urea Nitrogen 19 mg/dL (9-20); Calcium 9.2 mg/dL (8.4-10.2); Carbon Dioxide 30 mmol/L (22-30); Chloride 99 mmol/L (98-107); Estimated Glomerular Filt Rate > 60; Glucose 97 mg/dL (65-110); Potassium 4.6 mmol/L (3.4-5.0); Sodium 138 mmol/L (137-145)
== END 2024-09-02 11:04 | disposition home or self-care (01) ==
PROVIDERS: PCP Nurse Practitioner Family; Visit Provider Family Medicine
DX: I10 Essential (primary) hypertension (principal)
CPT/HCPCS: 36415; 80048

== ENCOUNTER 2025-01-03 07:04 | Outpatient (CLI) | payer MEDICARE, SELFPAY ==
--- NOTE | ~2025-01-03 | XR_ITS ---
AP and lateral views of the sacrum/coccyx CLINICAL HISTORY: Sacroiliitis FINDINGS: No fracture or dislocation seen. SI joints and hip joints are intact. No erosive or sclerot ic change. No degenerative change. Soft tissues are unremarkable. IMPRESSION: Unremarkable exam. No radiographic evidence for sacroiliitis. Reviewed, dictated and finalized at [facility].
--- NOTE | ~2025-01-03 | XR_ITS ---
Lumbosacral Spine: AP, oblique, and lateral views, neutral, flexion, and extension positioning Clinical History: Pain Findings: Mild dextroscoliosis present. There are minimal chronic wedging deformities of L1 and L3. T here is mild degenerative disc changes L4-L5. There is moderate degenerative change at L5-S1. There i s moderate to advanced facet arthropathy from L3 through S1. No instability evident on flexion or ext ension. The sacroiliac joints are normally outlined. Impression: Moderate degenerative spondylosis, as above. Minimal chronic wedging deformities of L1 and L3. Mild dextro scoliosis. Reviewed, dictated and finalized at location M. Impression: Moderate degenerative spondylosis, as above. Minimal chronic wedging deformities of L1 and L3. Mild dextro scoliosis.
--- NOTE | ~2025-01-03 | MR_ITS ---
MRI of the lumbar spine Clinical History: Spondylosis Technique: Axial T2-weighted images, and sagittal T1-weighted, T2-weighted, and T2 fat-sat images wer e acquired. Findings: No acute fracture seen. Probable minimal chronic wedging deformity of L1. There is minimal grade 1 anterolisthesis of L5 over S1. No suspicious bone marrow signal abnormality seen. At L1-L2, there is moderate degenerative distended. There is minimal disc bulge with moderate facet a rthropathy. No central canal stenosis or definite neural foraminal narrowing. At L2-L3, there is no disc bulge or herniation. There is mild facet arthropathy. No central canal jamie nosis. There is mild bilateral neural foraminal narrowing. At L3-L4, there is minimal disc bulge with moderate facet hypertrophy. No spinal canal stenosis. Ther e is mild bilateral neural foraminal narrowing. At L4-L5, there is disc bulge with severe facet arthropathy. There is minimal central canal stenosis. There is moderate bilateral neural foraminal narrowing. At L5-S1, there is moderate degenerative disc narrowing, with minimal disc bulge. There is moderate f acet hypertrophy. No spinal canal stenosis. There is severe bilateral neural foraminal narrowing. Paravertebral soft tissues are unremarkable. Impression: Moderate degenerative spondylosis at L5-S1, as above. Mild degenerative spondylosis in the remainder of the lumbar spine. Probable minimal chronic wedging deformity of L1. Minimal grade 1 retrolisthesis of L5 over S1. Reviewed, dictated and finalized at [facility]. Impression: Moderate degenerative spondylosis at L5-S1, as above. Mild degenerative spondyl osis in the remainder of the lumbar spine. Probable minimal chronic wedging deformity of L1. Minimal grade 1 retrolisthesis of L5 over S1.
== END 2025-01-03 07:05 | disposition home or self-care (01) ==
LOC: MICIMG 07:04
PROVIDERS: PCP Nurse Practitioner Family; Visit Provider Nurse Practitioner Adult Health
DX: M46.1 Sacroiliitis, not elsewhere classified (principal); M47.816 Spondylosis without myelopathy or radiculopathy, lumbar region; M47.817 Spondylosis without myelopathy or radiculopathy, lumbosacral region; M41.86 Other forms of scoliosis, lumbar region
CPT/HCPCS: 72114; 72148; 72220

== ENCOUNTER 2025-04-28 09:58 | Emergency (ER) | payer MEDICARE, SELFPAY ==
[2025-04-28] VITALS (9 sets, daily range): BP systolic 118–164; BP diastolic 76–90; PULSE 50–67; RESP 11–18; TEMP 36.3; O2SAT 97–100
--- NOTE | ~2025-04-28 | US_ITS ---
BILATERAL LOWER EXTREMITY VENOUS DUPLEX Clinical History: bilateral leg swelling . Comparison: None. Technique: Grayscale, color, duplex/spectral Doppler sonography bilateral lower extremities. Findings: Bilateral common femoral, femoral, popliteal, and calf veins compressible and color Doppler patent. Normal augmentation with distal compression. No internal echoes. IMPRESSION: 1. No DVT either leg. Reviewed, dictated and finalized at location R. IMPRESSION: 1. No DVT either leg.
--- NOTE | ~2025-04-28 | XR_ITS ---
EXAMINATION: XR chest 1V portable COMPARISON: No comparisons available. HISTORY: bilateral leg swelling FINDINGS: Bilateral basilar infiltrates. No pneumothorax. Heart is normal size. Mediastinal and hilar contours are within normal limits. Bony thorax no acute abnormality. Miscellaneous: None Impression: Bilateral early pneumonia Reviewed, dictated and finalized at location P. Impression: Bilateral early pneumonia
--- NOTE | 2025-04-28 10:01 | ED_ITS ---
HPI - Extremity Problem General Chief complaint: Extremity Problem,Nontraumatic Stated complaint: bilateral leg swelling Time Seen by Provider: 04/28/25 10:02 Source: patient Mode of arrival: ambulatory Limitations: no limitations History of Present Illness HPI Narrative: Ricardo is a 64 year old male patient presenting to the clinic today with c/o bilateral lower extremity pain and swelling x 1 day. He reports his pain is 10 at 10 currently. Denies any shortness of breath, dizziness, or chest pain. No history of congestive heart failure. Took a Percocet this morning for pain. No injury to his legs. States he has been a walking up and down a ladder for work and this is causing him increased pain. He is a current smoker. No history of blood clotting disorder. History of hypertension-takes lisinopril and hydrochlorothiazide. Related Data Allergies Allergy/AdvReac Type Severity Reaction Status Date / Time No Known Allergies Allergy Verified 04/28/25 11:02 Review of Systems 2 Review of Systems: Pertinent positives per HPI. Patient denies any fever, chills, rash, headache, visual changes, dizziness, cough, runny nose, sore throat, shortness of breath, chest pain, palpitations, nausea, vomiting, diarrhea, constipation, abdominal pain, or any urinary issues. [facility] Past Medical History Medical History Sacroiliitis Lumbar radiculopathy Lumbar spondylosis Cervical spondylosis Complete rotator cuff tear of left shoulder Injury of left shoulder Left shoulder pain Left anterior shoulder pain Arthritis GERD (gastroesophageal reflux disease) Bronchitis History of nicotine vaping Smoking Right knee DJD Fracture of radius, distal, right, closed Surgical History Surgical History History of tonsillectomy Family History Family History Unknown Hypertension Heart disease Diabetes mellitus Social History Social History Social History: caffeine use Smoking packs per day: 1 Smoking cigarettes per day: 20.0 Years smoked: 15 Smoking pack-years: 15.00 Smoking status: Former smoker Tobacco type: cigarettes and e-cigarettes/vaping Additional smoking assessment comments: QUIT CIG. 2013~ STARTED VAPING Alcohol intake: current Drinks per week: 3 Substance use: never Substance use type: does not use Do You Feel Safe in your Home?: Yes Lack of Transportation: No Lack of Food: Never True Current Housing: I Have Housing Concerned About Future Housing: No Difficulty Paying Gas/Electric Bills: No Difficulty Paying for Meds: No Currently Unemployed: No Education: Decline to Answer Difficulty w/ Childcare or Family Care: No Living arrangements: with family Occupation/Education: occupation Additional occupation/education comments: self employed Gender identity (if verbalized by the patient): Male Spiritual care concerns: No Comments At the time of my signature, I reviewed and agree with the nursing past medical, surgical, social, and family history. There is no relevant family history pertinent to the patient complaint. Exam 2 Narrative: General: Well-developed, well nourished, in no apparent distress Head: Normocephalic, atraumatic. Cardio: Regular rate and rhythm, s1 and s2 normal, no murmur appreciated. Resp: Clear to auscultation bilaterally, no rhonchi, rales, wheezing or rubs. Extremities: No deformity, 1+ pitting edema in bilateral lower extremities, no cyanosis, capillary refill less than 2 seconds, peripheral pulses palpable and strong. Integumentary: [place], warm, and dry, intact without lesion, no rashes. Musculoskeletal: No deformity, tender to palpation over bilateral lower legs, grossly normal range of motion, muscle strength strong and equal, peripheral pulse strong, no cyanosis, normal gait and station Course Course Emergency Course: Portions of this record may have been created with voice recognition software. Vital Signs Vital signs: Vital Signs Temperature 36.3 C L 04/28/25 10:03 Pulse Rate 67 04/28/25 10:03 Respiratory Rate 18 04/28/25 10:03 Blood Pressure 164/85 H 04/28/25 10:03 Pulse Oximetry 99 04/28/25 10:03 Oxygen Delivery Room Air 04/28/25 10:03 Temperature 36.3 C L 04/28/25 10:03 Pulse Rate 56 L 04/28/25 12:04 Respiratory Rate 16 04/28/25 12:04 Blood Pressure 122/90 04/28/25 12:04 Pulse Oximetry 100 04/28/25 12:04 Oxygen Delivery Room Air 04/28/25 10:03 Vital signs reviewed MDM - Extremity (Nontraumatic) MDM Narrative Medical decision making narrative: At the time of visit patient is resting comfortably on the exam table. Patient appears to be nontoxic. C/o bilateral lower extremity pain and swelling x 1 day. He reports his pain is 10 at 10 currently. Denies any shortness of breath or chest pain. No history of congestive heart failure. Took a Percocet this morning for pain. No injury to his legs. States he has been a walking up and down a ladder for work and this is causing him increased pain. He is a current smoker. No history of blood clotting disorder. History of hypertension-takes lisinopril and hydrochlorothiazide. Medications: Lasix 40 mg IV given in the ER EKG: EKG shows sinus bradycardia with a heart rate of 57 beats per minute with a right bundle-branch block. No ST elevation, depression, or T-wave inversion noted. Labs: CBC within normal limits, anticoagulant studies within normal limits, D- dimers less than 0.27 chemistry within normal limits, BN peptide is 413, trop is less than 0.012 Diagnostics: Venous Doppler shows no sign of DVT. Chest x-ray shows possible early bilateral pneumonia Plan: Discussed patient's case with Dr. Harley Garza suspect patient has venous insufficiency/bilateral lower extremity swelling. Supportive measures were discussed with the patient and they voiced understanding discharge instructions and agrees to treatment plan. Return precautions reviewed Differential Diagnosis Differential diagnosis: Likely cellulitis, superficial thrombophlebitis, lower extremity edema, deep vein thrombosis of lower extremity and other (CHF, venous insufficiency) Lab Data 04/28/25 10:21 04/28/25 10:21 Labs: Lab Results 04/28/25 Range/Units 10:21 WBC 8.1 (4.5-10.0) K/mm3 RBC 4.96 (4.6-6.20) M/mm3 Hgb 15.1 (14.0-18.0) g/dL Hct 46.3 (42.0-52.0) % MCV 93.3 (80-100) fl MCH 30.4 (26-34) pg MCHC 32.6 (32-36) g/dl RDW 13.2 (11.5-14.5) % Plt Count 237 (150-375) k/mm3 MPV 9.2 (7.4-10.4) fl Immature Gran % (Auto) 0.4 (0-0.5) % Neut % (Auto) 56.1 (45.5-73.1) % Lymph % (Auto) 28.7 (18.3-44.2) % [place] % (Auto) 10.8 H (2.6-8.5) % Eos % (Auto) 3.3 (0-4.4) % Baso % (Auto) 0.7 (0.2-1.2) % Lymph # (Auto) 2.32 (0.9-3.2) K/mm3 [place] # (Auto) 0.9 H (0.1-0.6) K/mm3 Eos # (Auto) 0.3 (0-0.3) K/mm3 Baso # (Auto) 0.1 (0.0-0.1) K/mm3 Abs Immat Gran (auto) 0.03 (0.00-0.031) K/mm3 Absolute Neuts (auto) 4.5 (1.3-6.7) K/mm3 Absolute Nucleated RBC 0.000 (0.0-0.012) K/mm3 Nucleated RBC % 0.0 (0.0-0.2) % PT 13.8 (11.1-14.7) Seconds INR 1.0 APTT 34.1 (22.3-36.8) Seconds D-Dimer < 0.27 (<0.48) ug/mL Sodium 138 (137-145) mmol/L Potassium 4.0 (3.4-5.0) mmol/L Chloride 102 (98-107) mmol/L Carbon Dioxide 28 (22-30) mmol/L Anion Gap 8 (4-12) mmol/L BUN 17 (9-20) mg/dL Creatinine 0.94 (0.7-1.3) mg/dL Estim Creat Clear Calc 77 ml/min Estimated GFR > 60 (59 - ) Glucose 90 (65-110) mg/dL Calcium 8.7 (8.4-10.2) mg/dL Total Bilirubin 1.0 (0.2-1.3) mg/dL AST 36 (17-59) U/L ALT 38 (6-50) U/L Alkaline Phosphatase 88 (38-126) U/L Troponin I < 0.012 (0.000-0.034) ng/mL NT-Pro-B Natriuret Pep 413 H (19.9-100) pg/mL Total Protein 8.1 (6.3-8.2) g/dL Albumin 4.3 (3.5-5.1) g/dL ECG Data EKG #1: Attestation EKG: I personally reviewed and interpreted this ECG as follows: ECG completion date: 04/28/25 ECG completion time: 10:15 Prior ECG tracings: not available for review Interpretation: EKG shows sinus bradycardia with a heart rate of 57 beats per minute with a right bundle-branch block without ST elevation, depression, or T-wave inversion. WI interval is 156 milliseconds, QRS durations 147 milliseconds, QT-QTC is 457- 452 milliseconds, P-R-T axis is 173 178 181. Discharge Plan Discharge Clinical Impression: Swelling of both lower extremities Patient Disposition: Home Condition: Stable Instructions: Antibiotic Form, Leg Edema (ED), Venous Insufficiency (DC) Additional Instructions: Labs are reassuring in the ER today Venous duplex are negative for blood clots Continue current medications as prescribed I suspect your leg swelling is likely due to venous insufficiency Increase fluids and stay well hydrated Elevate your legs as much as possible-specially at nighttime May use compression stockings to bilateral lower extremities to help alleviate swelling-wear these during the day and take them off at night Follow-up with your primary care doctor in 5-7 days if symptoms persist. May return to the Emergency Room if symptoms worsen- shortness of breath, chest pain, or increase in swelling. Patient Language: Hebrew Prescriptions: No Action hydrochlorothiazide 12.5 mg capsule See Rx Instructions .ROUTE .COMPLEX Qty: 90 3RF Dose Instruction: TAKE 1 CAPSULE BY MOUTH DAILY Rx Instructions: TAKE 1 CAPSULE BY MOUTH DAILY hydrocodone-acetaminophen 5-325 mg tablet 1 tablet PO QHS PRN (Reason: pain, severe) Qty: 10 0RF lisinopril 40 mg tablet See Rx Instructions .ROUTE .COMPLEX Qty: 90 0RF Dose Instruction: TAKE 1 TABLET BY MOUTH DAILY Rx Instructions: TAKE 1 TABLET BY MOUTH DAILY meloxicam 15 mg tablet 15 mg PO DAILY PRN (Reason: pain) Qty: 30 5RF gabapentin 800 mg tablet 800 mg PO QHS Qty: 90 1RF Rx Instructions: patient has not started this medication Follow-up/Referrals: Dorian Ace DO [Primary Care Provider, [facility]] Time of Disposition: 12:07 Quality NIHSS Nursing Documentation ED NIHSS nursing documentation: reviewed/agree
--- NOTE | 2025-04-28 10:09 | ECG_ITS ---
Test Date: 2025-04-28 10:15:50 Measurements Intervals [place] Rate: 57 P: 173 [place]: 156 QRS: 178 QRSD: 147 T: 181 QT: 457 QTc: 448 Interpretive Statements SINUS BRADYCARDIA LIMB LEAD REVERSAL RIGHT BUNDLE BRANCH BLOCK ABNORMAL ECG Compared to ECG 04/06/2024 11:30:14 NO SIGNIFICANT CHANGE Electronically Signed On 04-28-2025 10:29:10 CDT by Marcin Anderson D.O.
[2025-04-28 10:27] LABS: Hematocrit 46.3 % (42.0-52.0); Hemoglobin 15.1 g/dL (14.0-18.0); Immature Granulocyte Percent A 0.4 % (0-0.5); Lymphocytes Absolute Auto 2.32 K/mm3 (0.9-3.2); Mean Corpuscular HGB Conc 32.6 g/dl (32-36); Mean Corpuscular Hemoglobin 30.4 pg (26-34); Mean Corpuscular Volume 93.3 fl (80-100); Nucleated Red Blood Cells Absolute Auto 0.000 K/mm3 (0.0-0.012); Nucleated Red Blood Cells Perc 0.0 % (0.0-0.2); Platelet Count Result 237 k/mm3 (150-375); Red Blood Count 4.96 M/mm3 (4.6-6.20); White Blood Count 8.1 K/mm3 (4.5-10.0)
[2025-04-28 10:38] LABS: Alanine Aminotransferase 38 U/L (6-50); Albumin Level 4.3 g/dL (3.5-5.1); Alkaline Phosphatase 88 U/L (38-126); Anion Gap 8 mmol/L (4-12); Aspartate Amino Transferase 36 U/L (17-59); Bilirubin,Total 1.0 mg/dL (0.2-1.3); Blood Urea Nitrogen 17 mg/dL (9-20); Calcium 8.7 mg/dL (8.4-10.2); Carbon Dioxide 28 mmol/L (22-30); Chloride 102 mmol/L (98-107); Estimated CRCL calculation 77 ml/min; Estimated Glomerular Filt Rate > 60; Glucose 90 mg/dL (65-110); Potassium 4.0 mmol/L (3.4-5.0); Sodium 138 mmol/L (137-145); Total Protein 8.1 g/dL (6.3-8.2)
--- NOTE | 2025-04-28 10:40 | PC.NURSE ---
ultrasound at bedside at this time
[2025-04-28 10:46] LABS: INR 1.0; Prothrombin Time 13.8 Seconds (11.1-14.7)
[2025-04-28 10:47] LABS: Partial Thromboplastin Time 34.1 Seconds (22.3-36.8)
[2025-04-28 10:49] LABS: NT Pro B Type Natriuretic Pept 413 pg/mL (19.9-100); Troponin I < 0.012 ng/mL (0.000-0.034)
--- OUTSIDE RECORDS SUMMARY | 2025-04-28 11:30 | XMS_ITS | Clinical Summary ---
Author Organization [facility] Address [address] [place] [address] Care Team Providers Care Consultant Technology Name Role Phone Unavailable Primary Care Provider Unavailabl e Encounters Date Type Department Care Team Description 04/26/2025 External Device Data [facility] ABSTRACTION Provider, Abstract 03/15/2025 External Device Data [facility]STRACTION Provider, Abstract from Last 3 Months Social History Tobacco Use Types Packs/Day Years Used Date Smoking Tobacco: Never Assessed Sex and Gender Information Value Date Recorded Sex Assigned at Not on file Legal Sex Male 11:05 AM CDT Gender Identity Not on file Sexual Orientation Not on file Plan of Treatment Health Maintenance Due Date Last Done Comments DTAP/TDAP/TD VACCINES (1 - Tdap) 1977 COLORECTAL SCREENING 2003 Colorectal Cancer Screening 2003 FIT-DNA Q 3 years 2003 FIT/FOBT Q 1 year 2003 Flex Sig/CT Colonography Q 5 years 2003 PNEUMOCOCCAL VACCINE 50+ YEARS (1 of 1 - PCV) 08/06/19 09 ZOSTER VACCINE (1 of 2) 2008 INFLUENZA VACCINE (#1) 2025 RSV VACCINE (60+ or ) (1 - 1-dose 75+ series) 2033 Insurance RX [employer] RX Member Subscriber Plan / Payer (Ef fective 2024-Present) Name:Ricardo Patel Relation to Subscriber:Self Name:Ricardo Patel Payer ID:Not on file Group ID:[id number] Type:RX Medicare Part D Address: [address]
--- OUTSIDE RECORDS SUMMARY | 2025-04-28 11:30 | XMS_ITS | Encounter Summary ---
[facility] Organization [facility] Address [address] [place] [address] Care Team Providers Care Leach Cell Operator Name Role Phone Unavailable Primary Care Provider Unavailabl e Encounter Details Date Type Department Care Team (Late st Contact Info) Description 04/26/2025 External Device Data [facility]STRACTION Provider, Abstract NO ADDRESS ON FILE Social History Tobacco Use Types Packs/Day Years Used Date Smoking Tobacco: Never Assessed Sex and Gender Information Value Date Recorded Sex Assigned at Not on file Legal Sex Male 11:05 AM CDT Gender Identity Not on file Sexual Orientation Not on file documented as of this encounter Plan of Treatment Not on file documented as of this encounter Visit Diagnoses Not on filedocumented in this encounter
--- OUTSIDE RECORDS SUMMARY | 2025-04-28 11:30 | XMS_ITS | Clinical Summary ---
Author Organization [facility] Address [address] [place] [address] Care Team Providers Care Claim Representative Name Role Phone Unavailable Primary Care Provider Unavailabl e Source Comments [facility],non-owned Affiliates and Associated Physician Practices is amultiple site organization consisting of ambulatory clinics and hospital sitesin [place], [place], [place] and [place]. This disclosure is being madepursuant to the Care Everywhere program and may not contain all information available regarding this patient. Last updated 18.[facility] Immunizations Immunization Administration Dates Next Due iNFLUENZA VACCINE, RECOM-PAITNO, QUADR. (FLUBLOCK QUADRIVALENT; 18Y+) (RIV4) 05/05/2018 Social History Tobacco Use Types Packs/Day Years Used Date Smoking Tobacco: Never Assessed Sex and Gender Information Value Date Recorded Sex Assigned at Not on file Legal Sex Male 2:04 PM CDT Gender Identity Not on file Sexual Orientation Not on file Plan of Treatment Health Maintenance Due Date Last Done Comments COLOGUARD (AGES 45-75) - COL ON CA SCREENING 1958 COLON MONITORING 1958 COLONOSCOPY - COLON CA SCREENING 1958 CT COLONOGRAPHY - COLON CA SCREENING 1958 Colorectal Cancer Screening 1958 FIT - COLON CA SCREENING 1958 FLEX SIG - COLON CA SCREENING 1958 LIPID TESTING 1958 HEPATITIS C SCREENING 08/01/1976 DTAP/TDAP/TD VACCINES (1 - Tdap) 1977 PNEUMOCOCCAL VACCINE 50+ (1 of 1 - PCV) 2008 ZOSTER VACCINE (1 of 2) 2008 DEPRESSION SCREENING 07/07/2024 COVID-19 VACCINE (1 - 2023-2 5 season) 2025 INFLUENZA VACCINE (#1) 2025 05/05/2018 Respiratory Syncytial Virus (RSV) Vaccine Pt: or over 60 yrs (1 - 1-dose 75+ series) 2033 HEPATITIS B VACCINE Aged Out No longe r eligible based on patient's age to complete this topic HIB VACCINE Aged Out No longer eligi ble based on patient's age to complete this topic HPV VACCINE Aged Out No longer eligi ble based on patient's age to complete this topic MENINGOCOCCAL (Group B) VACC INE SHARED DECISION-MAKING Aged Out No longer eligibl e based on patient's age to complete this topic MENINGOCOCCAL GROUPS A/C/Y/W VACCINE Aged Out No longer eligible b ased on patient's age to complete this topic Insurance
--- NOTE | 2025-04-28 11:35 | PC.NURSE ---
Pt HR was lower than upon arrival. Provider notified and pt placed on cardiac monitoring. Provider OK'ed giving lasix.
--- NOTE | 2025-04-28 11:36 | PC.NURSE ---
Pts pulse continued to vary between the high 40's and mid to low 50's. Pt placed on cardiac monitoring for this reason,
[2025-04-28] MEDS: FUROSEMIDE INJ 40 MG/4 ML VIAL IV PUSH (11:39)
--- NOTE | 2025-04-28 11:47 | PC.NURSE ---
Pt notified to press call light if he needs to use the restroom. Urinal placed at bedside.
== END 2025-04-28 12:17 | disposition home or self-care (01) ==
PROVIDERS: Emergency Provider Nurse Practitioner Family; PCP Family Medicine
DX: R22.43 Localized swelling, mass and lump, lower limb, bilateral (principal); I10 Essential (primary) hypertension; K21.9 Gastro-esophageal reflux disease without esophagitis; F17.290 Nicotine dependence, other tobacco product, uncomplicated
CPT/HCPCS: 36415; 71045; 80053; 83880; 84484; 85025; 85380; 85610; 85730; 93005; 93970; 96374; 99284; J1938